=== PATIENT | female | born 1980 ===

== ENCOUNTER → 2023-06-18 07:56 | Outpatient (REF) | payer OTHER, SELFPAY | LOC: WDC 07:56 | PROVIDERS: ATTENDING PHYSICIAN Surgery; FAMILY PHYSICIAN Family Medicine | DX: R92.8 Other abnormal and inconclusive findings on diagnostic imaging of breast (principal) | CPT/HCPCS: 76642 ==

== ENCOUNTER → 2023-08-31 07:31 | Outpatient (REF) | payer OTHER, SELFPAY | LOC: WDC 07:31 | PROVIDERS: ATTENDING PHYSICIAN Surgery; FAMILY PHYSICIAN Family Medicine | DX: Z12.31 Encounter for screening mammogram for malignant neoplasm of breast (principal) | CPT/HCPCS: 77063; 77067 ==

== ENCOUNTER 2023-10-12 14:59 | Emergency (ER) | payer OTHER, SELFPAY ==
[2023-10-12 15:00] VITALS: BP 128/69
[2023-10-12 15:33] LABS: % Basophils 0.7 % (0-2); % Eosinophils 0.5 % (0-6); % Immature Granulocytes 0.4 % (0-0.5); % Lymphocytes 23.6 % (20.5-51.1); % Monocytes 7.2 % (1.7-9.3); % Neutrophils 67.6 % (42.2-75.2); Absolute Basophils 0.1 10^3/uL (0-0.2); Absolute Lymphocytes 1.8 10^3/uL (1.2-3.4); Absolute Monocytes 0.6 10^3/uL (0.1-0.6); Absolute Neutrophils 5.1 10^3/uL (1.4-6.5); Hematocrit 35.1 % (37.0-47.0); Hemoglobin 12.1 g/dL (12.0-16.0); Mean Corp Hgb Conc. 34.5 g/dL (33.0-37.0); Mean Corpuscular Hgb 29.4 pg (27.0-31.0); Mean Corpuscular Volume 85.4 fL (81.0-99.0); Mean Platelet Volume 11.5 fL (7.4-10.4); Nucleated Red Blood Cells % 0 %; Platelet Count 254 10^3/uL (130-400); Red Blood Cell Count 4.11 10^6/uL (4.20-5.40); White Blood Cell Count 7.6 10^3/uL (4.8-10.8)
[2023-10-12 15:36] LABS: HCG, Serum Qualitative Screen Negative
[2023-10-12 15:41] LABS: ALT (SGPT) 15 U/L (0-35); AST (SGOT) 21 U/L (14-36); Albumin 4.3 g/dl (3.5-5.0); Alkaline Phosphatase 60 U/L (38-126); Blood Urea Nitrogen 7 mg/dl (7-17); Calcium 9.2 mg/dl (8.4-10.2); Carbon Dioxide 27 mmol/L (22-30); Chloride 106 mmol/L (98-107); Glucose 108 mg/dl (70-99); Lipase 81 U/L (23-300); Potassium 3.9 mmol/L (3.5-5.1); Sodium 137 mmol/L (135-145); Total Bilirubin 1.3 mg/dl (0.2-1.3); Total Protein 6.6 g/dl (6.3-8.2); eGFR > 60.00
[2023-10-12 15:51] LABS: Troponin I < 0.012 ng/ml
--- NOTE | 2023-10-12 16:51 | ED.GENMED ---
History of Present Illness
General
Chief Complaint: Chest Pain
Time Seen by Provider: 10/12/23 16:00
History of Present Illness
History of Present Illness:
42-year-old female with history of MS presents for evaluation of heart palpitations, nausea, chest tightness, and generalized feeling of anxiety ongoing for the past day. She felt well this weekend but had a similar symptoms 3 days ago as well.
Denies any general weakness or extremity paresthesias/numbness.
Review of Systems
Review of Systems
Allergies reviewed?: Yes
All Other Systems: ROS reviewed and negative except as documented in HPI and ROS
Phy Exam
Physical Exam
Physical Exam:
GEN: Well appearing, NAD, WDWN
Eyes: PERRLA, EOMs intact, no scleral icterus
HENT: NCAT, oral mucosa moist, no JVD, no cervical adenopathy.
Lungs: CTAB, no wheezes, rales, rhonchi, normal chest wall excursion
Cardiac: RRR, no M/R/G, no peripheral edema. Radial pulses 2+ bilat
Abdomen: S, NT, ND, NABS, no masses or hepatosplenomegaly
Neuro: AO x 3, no focal deficits to BUE/BLE, normal sensation throughout Patellar and brachioradialis reflexes 2+ bilaterally
MSK: No gross deformity or ecchymosis. No edema. No digital clubbing
Skin: No rashes, petechiae. Normal color, no pallor or jaundice.
Psych: Calm, cooperative, proper hygiene
Scores
Heart Score for Chest Pain Patients
STEMI patient?: Not applicable
Course
Orders/Labs/Results
Orders:
Orders
10/12/23 15:07
Electrocardiogram (*1) Urgent
Reason for Study: Chest Pain
10/12/23 15:08
EKG- Treatment ONCE
Test Result ONCE
10/12/23 15:16
Complete Blood Count/With Diff Urgent
Comprehensive Metabolic Panel Urgent
HCG, Serum Qualitative Screen Urgent
Lipase Urgent
TSH Urgent
Comment: ADD ON
Troponin I Urgent
10/12/23 16:15
0.9% Sodium Chloride 1000 ml [Nss] 1,000 ml IV BOLUS
Lorazepam [Ativan] 0.5 mg IV NOW STA
Ondansetron Injectable [Zofran] 4 mg IV NOW STA
10/12/23 17:20
Add On- LAB Urgent
Tests Added?: TSH
Abnormal Lab Results
10/12/23
15:16
RBC 4.11 L 10^6/uL
(4.20-5.40)
Hct 35.1 L %
(37.0-47.0)
MPV 11.5 H fL
(7.4-10.4)
Glucose 108 H mg/dl
(70-99)
10/12/23 15:16
10/12/23 15:16
Vital Signs
Initial and Last Documented VS:
Initial Vital Signs
Temp Pulse Resp BP Pulse Ox
99.8 F 67 18 128/69 100
10/12/23 15:00 10/12/23 15:00 10/12/23 15:00 10/12/23 15:00 10/12/23 15:00
Last Documented Vital Signs
Temp Pulse Resp BP Pulse Ox
99.8 F 73 11 106/60 100
10/12/23 15:00 10/12/23 18:30 10/12/23 18:30 10/12/23 18:00 10/12/23 18:30
MDM/Problems Addressed
MDM/Problems Addressed:
Patient's workup is grossly unremarkable EKG shows no room and telemetry monitoring was unremarkable. Labs are reassuring. She was given IV fluids and's as well as lorazepam with modest improvement. Unclear etiology, could be self-limited viral
syndrome versus psychosomatic. Discharged in stable condition
*Critical Care Note
Total Time (30-74mins, 75-104mins- exclusive of procedures): Not Applicable
ED Attending Note
-
Portions of this chart may have been created with voice recognition software.� Occasional wrong word or��sound alike� substitutions may have occurred due to the inherent limitations of voice recognition software.
Discharge Plan
Departure
Patient Disposition: Home (Routine Discharge)
Date of Disposition: 10/12/23
Time of Disposition: 18:28
Patient with high blood pressure during this ER visit?: No
Discharge Problem:
Fatigue, Heart palpitations
Instructions: Palpitations ED
Referrals:
Lyndon Rosario DO [Family Provider] -
Interventions
Interventions:
*Risk Screen - Suicide Last Done: 10/12/23 15:00
*General Assessment Last Done: 10/12/23 15:00
*Neglect/Abuse Screening Last Done: 10/12/23 15:00
*Nursing Disposition Last Done: 10/12/23 18:39
ED- Cardiac Assessment Last Done: 10/12/23 17:48
Discharge Date and Time
Discharge Date/Time: 10/12/23 18:39
Print Language: [id number]
[2023-10-12] MEDS: NSS 1000 IV (17:01)
[2023-10-12] MEDS: ZOFRAN 4 MG IV (17:03)
[2023-10-12] MEDS: ATIVAN 0.5 MG IV (17:04)
[2023-10-12 17:19] VITALS: BP 120/68
[2023-10-12 18:00] VITALS: BP 106/60
[2023-10-12 18:32] LABS: TSH 1.78 uIU/ml (0.47-4.68)
== END 2023-10-12 18:39 | disposition home or self-care (01) ==
LOC: EMR 14:59
PROVIDERS: Emergency Medicine; EMERGENCY PHYSICIAN Emergency Medicine; FAMILY PHYSICIAN Family Medicine
DX: R53.83 Other fatigue (principal); R00.2 Palpitations; G35 Multiple sclerosis; F41.9 Anxiety disorder, unspecified
CPT/HCPCS: 99283; 96374; 96375; 96361; 80053; 83690; 84443; 84484; 84703; 85025; 93005

== ENCOUNTER 2024-07-10 06:24 | Day surgery (SDC) | payer OTHER, SELFPAY | END 2024-07-10 09:08 | disposition home or self-care (01) | LOC: GI 06:24 | PROVIDERS: ATTENDING PHYSICIAN Internal Medicine Gastroenterology | DX: Z12.11 Encounter for screening for malignant neoplasm of colon (principal); D12.8 Benign neoplasm of rectum; Z83.719 Family history of colon polyps, unspecified | CPT/HCPCS: 45385; 88305 ==

== ENCOUNTER → 2024-08-31 07:38 | Outpatient (REF) | payer OTHER, SELFPAY | LOC: WDC 07:38 | PROVIDERS: ATTENDING PHYSICIAN Surgery; FAMILY PHYSICIAN Family Medicine | DX: Z12.31 Encounter for screening mammogram for malignant neoplasm of breast (principal) | CPT/HCPCS: 77063; 77067 ==

== ENCOUNTER → 2024-10-09 09:51 | Outpatient (REF) | payer OTHER, SELFPAY | LOC: WDC 09:51 | PROVIDERS: ATTENDING PHYSICIAN Surgery; FAMILY PHYSICIAN Family Medicine | DX: R92.2 Inconclusive mammogram (principal) | CPT/HCPCS: 76641 ==